=== PATIENT | male | born 1955 | race African-American/Black ===

== ENCOUNTER 2016-10-13 11:02 | Emergency (ER) | payer OTHER ==
--- NOTE | 2016-10-13 11:33 | ER Document Report ---
ED Medical Screen (RME) - General Stated Complaint: KNEE PAIN Mode of Arrival: Ambulatory Information source: Patient Notes: 61 y/o M presents to ED c/o right knee pain over the last week. Reports associated swelling. Denies obvious injury. Reports hx of gout and states feels like gout flare up. I have greeted and performed a rapid initial assessment of this patient. A comprehensive ED assessment and evaluation of the patient, analysis of test results and completion of the medical decision making process will be conducted by additional ED providers. - Related Data Allergies/Adverse Reactions: No Known Allergies Allergy (Verified 10/13/16 11:31) Past Medical History - Past Medical History Cardiac Medical History: Reports: Hx Hypertension GI Medical History: Reports: Hx Gastroesophageal Reflux Disease Musculoskeltal Medical History: Reports Hx Arthritis - Immunizations Hx Diphtheria, Pertussis, Tetanus Vaccination: Yes Physical Exam - Vital signs Vitals: Temp Pulse Resp BP Pulse Ox 98.2 F 95 16 150/83 H 96 10/13/16 11:23 10/13/16 11:23 10/13/16 11:10/13/16 11:23 10/13/16 11:23 - General General appearance: Appears well, Alert In distress: None - Respiratory Respiratory status: No respiratory distress Course - Vital Signs Vital signs: Temp Pulse Resp BP Pulse Ox 98.2 F 95 16 150/83 H 96 10/13/16 11:23 10/13/16 11:23 10/13/16 11:23 10/13/16 11:23 10/13/16 11:23
[2016-10-13] MEDS ORDERED: HYDROCODONE/ACETAMINOPHEN 5-325 MG TABLET PO ONE (12:25)
--- NOTE | 2016-10-13 12:29 | ER Document Report ---
HPI - HPI Patient complains to provider of: right knee pain Onset: Last week Onset/Duration: Persistent Quality of pain: Achy Pain Level: 4 Context: Patient complains of right knee pain for the past week. Patient states he was on a bus ride and it was very cramped causing him to sit in a flexed position for a long period of time. Patient states whenever he stood up he started to have knee joint pain. Patient thought that he was having a gout flare up and took his usual gout medications, but continues to have right knee pain without improvement. Patient denies any new injury. Patient denies any chest pain or shortness of breath. Associated Symptoms: Other - Right knee joint pain. denies: Nonproductive cough , Fever Exacerbated by: Standing, Movement, Walking Relieved by: Denies Similar symptoms previously: Yes Recently seen / treated by doctor: No - ROS ROS below otherwise negative: Yes Systems Reviewed and Negative: Yes All other systems reviewed and negative - CONSTITUTIONAL Constitutional: DENIES: Fever, Chills - CARDIOVASCULAR Cardiovascular: DENIES: Chest pain - RESPIRATORY Respiratory: DENIES: Trouble Breathing, Coughing - GASTROINTESTINAL Gastrointestinal: DENIES: Nausea, Patient vomiting - MUSCULOSKELETAL Musculoskeletal: REPORTS: Extremity pain - Right knee - DERM Skin Color: Normal Skin Problems: None Past Medical History - General Information source: Patient - Social History Smoking Status: Never Smoker Chew tobacco use (# tins/day): No Frequency of alcohol use: None Drug Abuse: None Occupation: none Lives with: Spouse/Significant other Family History: Reviewed & Not Pertinent Patient has suicidal ideation: No Patient has homicidal ideation: No - Past Medical History Cardiac Medical History: Reports: Hx Hypertension Renal/ Medical History: Denies: Hx Peritoneal Dialysis GI Medical History: Reports: Hx Gastroesophageal Reflux Disease Musculoskeltal Medical History: Reports Hx Arthritis, Reports Other - Artemio Surgical Hx: Negative - Immunizations Hx Diphtheria, Pertussis, Tetanus Vaccination: Yes Vertical Provider Document - CONSTITUTIONAL Agree With Documented VS: Yes Exam Limitations: No Limitations General Appearance: WD/WN, No Apparent Distress - INFECTION CONTROL TRAVEL OUTSIDE OF THE [place] IN LAST 30 DAYS: No - HEENT HEENT: Atraumatic, Normocephalic - NECK Neck: Normal Inspection, Supple - RESPIRATORY Respiratory: Breath Sounds Normal, No Respiratory Distress O2 Sat by Pulse Oximetry: 96 - CARDIOVASCULAR Cardiovascular: Regular Rate, Regular Rhythm, No Murmur Pulses: Normal: Posterior tibial - MUSCULOSKELETAL/EXTREMETIES Musculoskeletal/Extremeties: MAEW, FROM, Tender - Patient with mild tenderness to the lateral compartment of right knee. No effusion, normal skin color and temperature overlying joint. - NEURO Level of Consciousness: Awake, Alert, Appropriate Motor/Sensory: No Motor Deficit - DERM Integumentary: Warm, Dry, No Rash Course - Re-evaluation Re-evalutation: 10/13/16 12:26 Patient denies injury and does not feel it is necessary to have x-ray performed. - Vital Signs Vital signs: Temp Pulse Resp BP Pulse Ox 98.2 F 95 16 150/83 H 96 10/13/16 11:23 10/13/16 11:23 10/13/16 11:23 10/13/16 11:23 10/13/16 11:23 Discharge - Discharge Clinical Impression: Pain, joint, knee, right, Hx of gout, Hx of chronic arthritis Condition: Stable Disposition: HOME, SELF-CARE Instructions: Oral Narcotic Medication ([facility]), Arthritis ([facility]), Gout Diet ([facility]) , Gout ([facility]) Additional Instructions: Return immediately for any new or worsening symptoms Followup with your primary care provider, call tomorrow to make a followup appointment Follow up with orthopedic Dr. for any continued knee pain or problems Use a walker to help with ambulation Take either your ibuprofen or Indocin, do not take both medications together Prescriptions: Hydrocodone/Acetaminophen [[place] 5-325 Tablet] 1 each PO Q8 PRN #15 tablet PRN Reason: Walker [Folding Walker] 1 each MC ASDIR PRN #1 each PRN Reason: Referrals: JEWEL MARTIN MD [Primary Care Provider] - Follow up tomorrow [facility] [Provider Group] - Follow up in 3-5 days
[2016-10-13 12:49] VITALS: BP 124/74
== END 2016-10-13 12:50 | disposition home or self-care (01) ==
LOC: ER 11:02
DX: M25.561 Pain in right knee (principal)
CPT/HCPCS: 99283

== ENCOUNTER 2017-06-30 23:31 | Inpatient (IN) | payer OTHER ==
[2017-06-30] MEDS ORDERED: MORPHINE SULFATE 10 MG/ML INJ IV ONE (23:39)
[2017-06-30] MEDS ORDERED: ONDANSETRON HCL INJ/PF 4 MG/2 ML SDV IV ONE (23:39)
[2017-06-30] MEDS ORDERED: DIPHENHYDRAMINE HCL 50 MG/ML VIAL ONE (23:44)
--- NOTE | 2017-06-30 23:46 | ER Document Report ---
ED Extremity Problem, Lower - General Chief Complaint: Leg Pain Stated Complaint: LEG PAIN Time Seen by Provider: 06/30/17 23:33 Information source: Patient TRAVEL OUTSIDE OF THE [place] IN LAST 30 DAYS: No - HPI Patient complains to provider of: Pain Notes: 61-year-old male with history of hypertension, gout, and arthritis presents with left lower extremity pain predominantly but now fairly diffuse extremity pain for the last couple of days. The left lower extremity pain is the worst extends from the left knee to the left lateral calf region. He is now getting pain in his right knee as well he is having pain from his elbows to his arms. Denies any injury. Denies any distal numbness or tingling. Pain is made worse with movement. No fever. Denies chest pain or shortness of breath. He has not noted any excessive swelling different from normal. Denies other systemic symptoms. Patient tearful and states from pain though family report sister 3 weeks ago. - Related Data Allergies/Adverse Reactions: No Known Allergies Allergy (Verified 10/13/16 11:31) Past Medical History - Social History Smoking Status: Former Smoker Frequency of alcohol use: Heavy prior, now 2 drinks a day. Family History: Reviewed & Not Pertinent Patient has suicidal ideation: No - Past Medical History Cardiac Medical History: Reports: Hx Hypertension Renal/ Medical History: Denies: Hx Peritoneal Dialysis GI Medical History: Reports: Hx Gastroesophageal Reflux Disease Musculoskeltal Medical History: Reports Hx Arthritis - Immunizations Hx Diphtheria, Pertussis, Tetanus Vaccination: Yes Review of Systems - Review of Systems -: Yes All other systems reviewed and negative Physical Exam - Vital signs Vitals: Temp Pulse Resp BP Pulse Ox 98.3 F 121 H 17 146/93 H 99 06/30/17 23:39 06/30/17 23:39 06/30/17 23:39 06/30/17 23:39 06/30/17 23:39 - Notes Notes: Physical Exam: GENERAL: VS as per nursing doc. Well-appearing, well-nourished and in no acute distress but has notable pain with movement going from the stretcher to the bed. HEAD: Atraumatic, normocephalic. EYES: Sclera anicteric, no conjunctival injection or discharge. ENT: Moist mucous membranes. NECK:Supple without lymphadenopathy. No JVD. No Carotid Bruits. LUNGS: Breath sounds clear to auscultation bilaterally and equal. No wheezes rales or rhonchi. HEART: Normal S1S2. Tachycardic with regular rhythm without murmurs. Equal peripheral pulses 2+. ABDOMEN: Soft, non-tender. EXTREMITIES: Diffusely tender left knee with arthritic changes but no significant effusion. Some tenderness in the popliteal region but no specific calf tenderness and is more over the lateral calf. Negative Homans. Slightly more edema to the left ankle compared to the right. NEUROLOGICAL: Cranial nerves grossly intact. Normal speech. Normal sensory and motor exams. No gross cerebellar abnormalities. PSYCH: Normal mood, normal affect. SKIN: Warm, dry, no cyanosis, no splinter hemorrhages. Cap refill < 2 sec. No extremity cellulitis. Course - Re-evaluation Re-evalutation: 07/01/17 01:[address] Wiley who will evaluate the patient. Unfortunately at this institution I do not do duplex ultrasounds after 10 PM and will be able at 8 to be able to perform. Patient has severe hypomagnesemia and hypokalemia with an abnormal EKG. We have begun supplementation in the emergency department. Patient as well cannot effectively ambulate without significant fall risk. - Vital Signs Vital signs: Temp Pulse Resp BP Pulse Ox 98.3 F 121 H 18 144/88 H 97 06/30/17 23:39 06/30/17 23:39 07/01/17 01:01 07/01/17 01:01 07/01/17 01:01 - Laboratory Result Diagrams: 07/01/17 00:05 07/01/17 00:05 Laboratory results interpreted by me: 07/01/17 07/01/17 07/01/17 00:05 00:05 00:05 RBC 3.03 L Hgb 10.6 L Hct 30.7 L MCV 101 H MCH 35.0 H D-Dimer 1.61 H Potassium 3.0 L* Glucose 125 H Calcium 7.9 L Magnesium 07/01/17 00:05 RBC Hgb Hct MCV MCH D-Dimer Potassium Glucose Calcium Magnesium 1.0 L* - Diagnostic Test Radiology reviewed: Image reviewed, Reports reviewed - No acute abnormality - EKG Interpretation by Me Rate: Tachycardia - Sinus tachycardia, rate of 115, nonspecific ST abnormalities with some slurring of the ST segments. Poor R-wave regression with left axis deviation. LVH by criteria in aVL. Discharge - Discharge Clinical Impression: Leg pain, Hypomagnesemia, Hypokalemia, Tachycardia Condition: Fair Disposition: ADMITTED OBSERVATION Admitting Provider: [facility] Admitted: Telemetry
[2017-07-01 00:20] LABS: ABSOLUTE LYMPHOCYTES (AUTO) 1.2 10^3/uL (0.5-4.7); ABSOLUTE MONOCYTES (AUTO) 0.9 10^3/uL (0.1-1.4); ABSOLUTE NEUT (AUTO) 6.9 10^3/uL (1.7-8.2); BASOPHILS % (AUTO) 0.5 % (0-2); EOSINOPHILS % (AUTO) 0.3 % (0-6); HEMATOCRIT 30.7 % (37.9-51.0); HEMOGLOBIN 10.6 g/dL (13.5-17.0); HGB HCT DIFFERENCE 1.1; LYMPHOCYTES % (AUTO) 13.3 % (13-45); MEAN CORPUSCULAR HGB CONC 34.6 g/dL (32.0-36.0); MEAN CORPUSCULAR VOLUME 101 fl (80-97); MONOCYTES % (AUTO) 10.3 % (3-13); RED BLOOD COUNT 3.03 10^6/uL (4.35-5.55); RED CELL DISTRIBUTION WIDTH 13.6 % (11.5-14.0); SEGMENTED NEUTROPHILS % (AUTO) 75.6 % (42-78); WHITE BLOOD COUNT 9.1 10^3/uL (4.0-10.5)
[2017-07-01 00:32] LABS: ANION GAP 13 (5-19); BLOOD UREA NITROGEN 12 mg/dL (7-20); CALCIUM 7.9 mg/dL (8.4-10.2); CARBON DIOXIDE 24 mmol/L (22-30); CHLORIDE 104 mmol/L (98-107); CREATINE KINASE 135 U/L (55-170); CREATININE RESULT 1.23 mg/dL (0.52-1.25); GLUCOSE 125 mg/dL (75-110); SODIUM 140.8 mmol/L (137-145); URIC ACID 7.5 mg/dL (3.5-8.5)
[2017-07-01] MEDS ORDERED: POTASSIUM CHLORIDE 10 MEQ TABLET.SA PO ONE ×2 (00:44→01:39)
--- NOTE | 2017-07-01 01:11 | RADIOLOGY REPORT (SQ) ---
EXAM DESCRIPTION: TIBIA FIBULA LEFT CLINICAL HISTORY: Pain COMPARISON: None. FINDINGS: 2 views of the left tibia and fibula. Atherosclerotic vascular calcification. No acute fracture or dislocation. Normal osseous mineralization. IMPRESSION: 1. No acute fracture or dislocation.
[2017-07-01] MEDS ORDERED: MAGNESIUM SULFATE/D5W 1 GM/100 ML RTUPB IV SCH (01:30)
[2017-07-01] MEDS ORDERED: ONDANSETRON HCL INJ/PF 4 MG/2 ML SDV IV PRN (01:39)
[2017-07-01] MEDS ORDERED: ACETAMINOPHEN 325 MG TABLET PO PRN (01:39)
[2017-07-01] MEDS ORDERED: POTASSIUM CHLORIDE 20 MEQ/15 ML UDCUP PO ONE (02:00)
[2017-07-01] MEDS ORDERED: NORMAL SALINE 1000 ML 500 ML IV ONE (02:05)
[2017-07-01] MEDS ORDERED: DIAZEPAM 5 MG TABLET PO ONE (02:31)
[2017-07-01] MEDS ORDERED: NORMAL SALINE 1000 ML 1,000 ML IV ONE (02:31)
[2017-07-01] MEDS: MAGNESIUM SULFATE/D5W 1 GM/100 ML RTUPB IV SCH ×3 (02:38→04:43)
[2017-07-01] MEDS ORDERED: FOLIC ACID 1 MG TABLET PO ONE (02:53)
[2017-07-01] MEDS ORDERED: THIAMINE HCL 100 MG TABLET PO ONE (02:53)
--- NOTE | 2017-07-01 02:53 | PDOC H&P ---
History of Present Illness Admission Date/PCP: 07/01/17 02:10 History of Present Illness: HOLA PRICE is a 61 year old male with a PMH of HTN, hypothyroidism, gout, alcohol abuse, GERD who presents with a sudden onset of Left lower extremity pain. Patient reports he did a lot of walking today and he began having pain while he was resting. He does report an episode of diarrhea last week which is quite profound. He reports his last drink was this afternoon. He denies any shortness of breath, swelling. He is referred to hospital service for electrolyte disturbance and lower extremity pain. Past Medical History Cardiac Medical History: Reports: Hypertension Endocrine Medical History: Reports: Hypothyroidism Renal/ Medical History: Reports: Other - Gout GI Medical History: Reports: Gastroesophageal Reflux Disease Musculoskeltal Medical History: Reports: Arthritis Psychiatric Medical History: Reports: Alcohol Dependency Past Surgical History Past Surgical History: Reports: None Social History Smoking Status: Former Smoker Frequency of Alcohol Use: Heavy Amount of Alcoholic Beverages Per Day: 2-3 double shots of hard liquor daily or more Hx Recreational Drug Use: No Hx Prescription Drug Abuse: No - Advance Directive Resuscitation Status: Full Code Surrogate healthcare decision maker:: Obdulia Montaño, Family History Family History: CAD, DM Parental Family History Reviewed: Yes Children Family History Reviewed: Yes Sibling(s) Family History Reviewed.: Yes Medication/Allergy Home Medications: Amlodipine Besylate 10 mg PO DAILY 08/31/13 Clobetasol Propionate [Temovate 0.05% Topical Soln 25 ml] 1 applic TP ASDIR PRN 08/31/13 Esomeprazole Magnesium [Nexium] 40 mg PO DAILY 08/31/13 Indomethacin 50 mg PO TID 08/31/13 Valsartan [Diovan] 320 mg PO DAILY 08/31/13 Ondansetron HCl [Zofran 8 Mg Tablet] 8 mg PO Q4 PRN #10 tablet 11/14/13 Hydrocodone/Acetaminophen [[place] 5-325 Tablet] 1 each PO Q8 PRN #15 tablet 10/13 Walker [Folding Walker] 1 each MC ASDIR PRN #1 each 10/13/16 Allergies/Adverse Reactions: No Known Allergies Allergy (Verified 10/13/16 11:31) Review of Systems Constitutional: ABSENT: chills, fever(s), headache(s), weight gain, weight loss Eyes: ABSENT: visual disturbances Ears: ABSENT: hearing changes Cardiovascular: ABSENT: chest pain, dyspnea on exertion, edema, orthropnea, palpitations Respiratory: ABSENT: cough, hemoptysis Gastrointestinal: ABSENT: abdominal pain, constipation, diarrhea, hematemesis, hematochezia, nausea, vomiting Genitourinary: ABSENT: dysuria, hematuria Musculoskeletal: ABSENT: joint swelling Integumentary: ABSENT: rash, wounds Neurological: ABSENT: abnormal gait, abnormal speech, confusion, dizziness, focal weakness, syncope Psychiatric: PRESENT: depression. ABSENT: anxiety, homidical ideation, suicidal ideation Endocrine: ABSENT: cold intolerance, heat intolerance, polydipsia, polyuria Hematologic/Lymphatic: ABSENT: easy bleeding, easy bruising Physical Exam Vital Signs: Temp Pulse Resp BP Pulse Ox 98.3 F 121 H 18 144/88 H 97 06/30/17 23:39 06/30/17 23:39 07/01/17 01:01 07/01/17 01:01 07/01/17 01:01 General appearance: PRESENT: no acute distress, morbidly obese, well-developed, well-nourished Head exam: PRESENT: atraumatic, normocephalic Eye exam: PRESENT: conjunctiva pink, EOMI, PERRLA. ABSENT: conjunctival injection, scleral icterus Ear exam: PRESENT: normal external ear exam Mouth exam: PRESENT: dry mucosa, tongue midline Neck exam: PRESENT: thyromegaly - Mild. ABSENT: JVD, lymphadenopathy, tracheal deviation Respiratory exam: PRESENT: clear to auscultation asim, symmetrical, unlabored. ABSENT: accessory muscle use, rales, rhonchi, wheezes Cardiovascular exam: PRESENT: RRR, +S1, +S2, tachycardia. ABSENT: diastolic murmur, rubs, systolic murmur Pulses: PRESENT: normal dorsalis pedis pul Vascular exam: PRESENT: normal capillary refill GI/Abdominal exam: PRESENT: ascites, distended, normal bowel sounds, soft. ABSENT: firm, guarding, hernia, mass, Nicole's sign, organolmegaly, rebound, rigid, tenderness Rectal exam: PRESENT: deferred Extremities exam: PRESENT: calf tenderness - Left lower extremity, full ROM. ABSENT: clubbing, pedal edema Neurological exam: PRESENT: alert, awake, oriented to person, oriented to place , oriented to time, oriented to situation, CN II-XII grossly intact. ABSENT: motor sensory deficit Psychiatric exam: PRESENT: appropriate affect, depressed. ABSENT: homicidal ideation, suicidal ideation Skin exam: PRESENT: dry, intact, warm. ABSENT: cyanosis, rash Results Laboratory Results: 07/01/17 07/01/17 07/01/17 00:05 00:05 00:05 Hgb 10.6 L D-Dimer 1.61 H Potassium 3.0 L* Glucose 125 H Uric Acid 7.5 Calcium 7.9 L Magnesium Creatine Kinase 135 07/01/17 00:05 Hgb D-Dimer Potassium Glucose Uric Acid Calcium Magnesium 1.0 L* Creatine Kinase Impressions: Tibia/Fibula X-Ray 07/01/17 00:33 IMPRESSION: 1. No acute fracture or dislocation. Assessment & Plan - Diagnosis (1) Leg pain Qualifiers: Laterality: left Qualified Code(s): M79.605 - Pain in left leg Is this a current diagnosis for this admission?: Yes Plan: This is likely secondary to patient's likely derangement, however in light of elevated d-dimer we would be remiss for not obtaining an ultrasound. However, we are unable to obtain an ultrasound in the evening at this facility. Patient will have to be observed overnight in order to obtain one prior to discharge. Ultram as needed pain (2) Alcohol abuse Is this a current diagnosis for this admission?: Yes Plan: Place patient on thiamine, folic acid, and oral magnesium. Give one-time dose of Valium and will consider Ativan if symptoms worsen. He reports his last drink was earlier this afternoon. (3) Hypothyroidism Qualifiers: Hypothyroidism type: unspecified Qualified Code(s): E03.9 - Hypothyroidism , unspecified Is this a current diagnosis for this admission?: Yes Plan: Check a TSH and free T4 (4) GERD (gastroesophageal reflux disease) Qualifiers: Esophagitis presence: esophagitis presence not specified Qualified Code(s) : K21.9 - Gastro-esophageal reflux disease without esophagitis Is this a current diagnosis for this admission?: Yes Plan: Continue PPI (5) Hypertension Qualifiers: Hypertension type: unspecified Qualified Code(s): I10 - Essential (primary ) hypertension Is this a current diagnosis for this admission?: Yes Plan: Continue Norvasc and consider Cozaar (6) Hypokalemia Is this a current diagnosis for this admission?: Yes Plan: Replete and recheck (7) Hypomagnesemia Is this a current diagnosis for this admission?: Yes Plan: Replete and recheck - Time Time Spent: 30 to 50 Minutes Medications reviewed and adjusted accordingly: No - Undergoing reconciliation Anticipated discharge: Home Within: within 24 hours - Inpatient Certification Based on my medical assessment, after consideration of the patient's comorbidities, presenting symptoms, or acuity I expect that the services needed warrant INPATIENT care.: No I certify that my determination is in accordance with my understanding of Medicare's requirements for reasonable and necessary INPATIENT services [42 CFR 412.3e].: No 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
[2017-07-01] MEDS ORDERED: LANSOPRAZOLE 30 MG TAB.RAP.DR PO ONE (03:00)
[2017-07-01] MEDS: POTASSI CL 20 MEQ/50 ML RIDER 20 MEQ/50 ML RTUPB IV SCH ×3 (04:07→08:53)
[2017-07-01 04:10] LABS: THYROID STIMULATING HORMONE 7.27 uIU/mL (0.47-4.68)
[2017-07-01] MEDS: TRAMADOL HCL 50 MG TABLET PO PRN ×2 (04:41→14:13)
[2017-07-01] MEDS: HEPARIN SOD (PORCINE) 5,000 UNIT/ML 1 ML SYRINGE SUBCUT SCH ×3 (05:16→21:56)
[2017-07-01] MEDS: DIAZEPAM 5 MG TABLET PO SCH ×3 (05:41→21:55)
--- NOTE | 2017-07-01 09:28 | EKG REPORT ---
SEVERITY:- ABNORMAL ECG - SINUS TACHYCARDIA LEFT AXIS DEVIATION LEFT VENTRICULAR HYPERTROPHY : Confirmed by: Christel Leslie 01-Jul-2017 09:27:59
[2017-07-01 10:38] LABS: ANION GAP 14 (5-19); BLOOD UREA NITROGEN 12 mg/dL (7-20); CALCIUM 7.8 mg/dL (8.4-10.2); CARBON DIOXIDE 22 mmol/L (22-30); CHLORIDE 105 mmol/L (98-107); CREATININE RESULT 1.17 mg/dL (0.52-1.25); GLUCOSE 144 mg/dL (75-110); MAGNESIUM 1.9 mg/dL (1.6-2.3); POTASSIUM 3.7 mmol/L (3.6-5.0); SODIUM 141.4 mmol/L (137-145)
[2017-07-01] MEDS: THIAMINE HCL 100 MG TABLET PO SCH (10:47)
[2017-07-01] MEDS: AMLODIPINE BESYLATE 10 MG TABLET PO SCH (10:48)
[2017-07-01] MEDS: FOLIC ACID 1 MG TABLET PO SCH (10:48)
[2017-07-01] MEDS: PREDNISONE 20 MG TABLET PO SCH ×2 (10:48→17:00)
[2017-07-01] MEDS ORDERED: [UNRECOGNIZED DRUG - REMARK] PO ONE (11:00)
[2017-07-01] MEDS ORDERED: COLCHICINE 0.6 MG TABLET PO ONE (11:00)
[2017-07-01 12:08] LABS: HEMATOCRIT 31.4 % (37.9-51.0); HEMOGLOBIN 10.8 g/dL (13.5-17.0); MEAN CORPUSCULAR HEMOGLOBIN 35.1 pg (27.0-33.4); MEAN CORPUSCULAR HGB CONC 34.3 g/dL (32.0-36.0); MEAN CORPUSCULAR VOLUME 102 fl (80-97); RED BLOOD COUNT 3.07 10^6/uL (4.35-5.55); RED CELL DISTRIBUTION WIDTH 13.7 % (11.5-14.0); WHITE BLOOD COUNT 9.3 10^3/uL (4.0-10.5)
--- NOTE | 2017-07-01 12:13 | PROGRESS NOTE E ---
Progress Note NAME: HOLA PRICE : 1955 AGE: 61Y DATE: 07/01/2017 ROOM: 422 CHIEF COMPLAINT: Something is not right. SUBJECTIVE: The patient is lying in bed. The patient is quite shaky. The patient states that his last alcoholic beverage was yesterday; however, the patient does not feel his symptoms are related to that. The patient does complain of persistent left lower extremity pain and discomfort. The patient himself denies any nausea or vomiting. There is no diarrhea. The patient denies any shortness of breath. No dizziness or chest pain. The patient admits to left upper extremity pain that has started acutely. The patient also states that "there is something wrong with me." The patient did not voice any other concerns at this time. His is present at the bedside and active in the patient's care. REVIEW OF SYSTEMS: Rest of the review of systems negative. MEDICATIONS: Have been reviewed. OBJECTIVE: GENERAL: The patient is a 61-year-old -[place] male who is awake and alert. He is oriented to person, place, time, and situation. He is verbal, conversational, appears quite anxious but does not appear to be in respiratory distress. VITAL SIGNS: Temperature 98.4, pulse 117, respirations 20, blood pressure 147/81, oxygen saturation is 96% on 2 L nasal cannula. SKIN: Quite warm to the touch. Mildly diaphoretic. HEENT: Pupils equal, round, reactive to light and accommodation. Conjunctivae are pink. There is no evidence of JVP. CARDIOVASCULAR: Heart is tachycardiac but regular. There is no rub. CHEST: Clear, symmetrical, unlabored. ABDOMEN: Large but not distended. He does not have any areas of focal tenderness. EXTREMITIES: No clubbing or cyanosis. The patient does have left lower extremity pain with touch. PSYCHIATRIC: The patient is quite anxious and shaky. DIAGNOSTICS: Lab values are as follow: Hematology obtained on 07/01/2017: WBCs are 9.1, hemoglobin is 10.6, hematocrit is 30.7, platelet count is 154,000. Chemistry obtained on 07/01/2017: Sodium is 140, potassium 3.0, chloride is 104, carbon dioxide 24, BUN 12, creatinine is 1.23, glucose 125, calcium is 7.5, uric acid is 7.5, magnesium is 1. IMPRESSION AND PLAN: 1. HYPOKALEMIA. This is significant. The patient is receiving potassium repletion at this time. Will stat repeat chemistries and follow. 2. HYPOMAGNESEMIA ALSO PROFOUND. The patient has received repletion as well. Will repeat at this time. 3. ALCOHOL DEPENDENCY. Will continue B vitamin supplementation. Will also start the patient on beer t.i.d. Do not want alcohol withdrawal to skew this clinical picture at this time. 4. LEFT LOWER EXTREMITY PAIN. The patient gives a history of gout. Venous Doppler is pending. Although the patient's uric acid is unremarkable, this could be delayed. Regardless, will load the patient with colchicine and give a dose of steroids and follow. 5. SIRS RESPONSE. The patient does have a low grade fever. His heart rate at one point was up to 140. He is now sitting in the 120 range and is hypertensive. Could be an element of alcohol withdrawal here, however, given the patient's anxiety and clinical picture am concerned for another etiology. Will obtain blood and urine studies and will add LFTs and follow. 6. LEFT EXTREMITY PAIN. The patient was unable to pinpoint any issue. He denies any actual chest pain though. Will add troponin and repeat EKG and follow. DISPOSITION: The patient is a FULL CODE. Pending patient's symptomatology and diagnostic findings, will reevaluate as needed. Time spent on this followup including assessment, plan, physical examination, patient education, family meeting, and review of previous and current medical records is 40 minutes. ADDENDUM: Followed up the patient's repeat labs. His hematology is still pending as well as LFTs; however his BMP has returned and potassium has been corrected as well as magnesium. The patient's troponin was also unremarkable. However, the patient still remains quite anxious and is tachycardiac at 120 as well as hypertensive and has a low grade temp of 100. Will add antipyretic therapy as well as chest x-ray pending the results of the patient's Doppler. May also do CTA or forego the above for CTA and transfer to [facility]. Time spent on this followup including patient reassessment and review of medical records is 30 minutes. Total time spent on this patient for an extended visit including assessment, plan, physical examination, patient education, family meeting, and review of records is 70 minutes. DICTATING PHYSICIAN: JOSSUE SANCHEZ NP [id number] PHY#: [id number] ID: [id number] JOB#: [id number] ACCT: [id number] cc: >
[2017-07-01 12:30] LABS: ALANINE AMINOTRANSFERASE 28 U/L (21-72); ALBUMIN 3.2 g/dL (3.5-5.0); ALKALINE PHOSPHATASE 115 U/L (38-126); ASPARTATE AMINO TRANSFERASE 44 U/L (17-59); BILIRUBIN,DIRECT 1.5 mg/dL (0.0-0.4); BILIRUBIN,TOTAL 2.4 mg/dL (0.2-1.3); TOTAL PROTEIN 7.3 g/dL (6.3-8.2)
--- NOTE | 2017-07-01 13:19 | RADIOLOGY REPORT (SQ) ---
EXAM DESCRIPTION: CTA CHEST COMPLETED DATE/TIME: 07/01/2017 1:03 pm REASON FOR STUDY: +D-dimer, dyspnea, Persistant tach COMPARISON: None. TECHNIQUE: CT scan of the chest performed using helical scanning technique with dynamic intravenous contrast injection. Images reviewed with lung, soft tissue and bone windows. Reconstructed coronal and sagittal MPR images reviewed. Additional 3 dimensional post-processing performed to develop Maximal Intensity Projection images (CA P). All images stored on PACS. All CT scanners at this facility use dose modulation, iterative reconstruction, and/or weight based d osing when appropriate to reduce radiation dose to as low as reasonably achievable (ALARA). [facility]: Dose Right [facility]: CareDose [facility]: Dose Right [facility]: Teradose 4D [facility]: MicroCoal CONTRAST TYPE AND DOSE: contrast/concentration: Isovue 370.00 mg/ml; Total Contrast Delivered: 85.0 ml; Total Saline Delivered: 77.9 ml Contrast bolus optimized for the pulmonary arteries. Not diagnostic for the aorta. RENAL FUNCTION: BUN 12 creatinine 1.2 RADIATION DOSE: Up-to-date CT equipment and radiation dose reduction techniques were employed. CTDIv ol: 23.2 - 28.6 mGy. DLP: 1000 mGy-cm. . LIMITATIONS: Motion. FINDINGS: LUNGS AND PLEURA: Diffuse interlobular septal thickening. Diffuse ground-glass attenuatio n. No effusions. AORTA AND GREAT VESSELS: No aneurysm. Contrast bolus not optimized for the aorta. HEART: No pericardial effusion. Cardiomegaly. PULMONARY ARTERIES: No emboli visualized in the main pulmonary arteries or the segmental branches. HILAR AND MEDIASTINAL STRUCTURES: No identified masses or abnormal nodes. HARDWARE: None in the chest. UPPER ABDOMEN: Cholelithiasis. Polycystic kidney disease. Hiatal hernia. Subcentimeter low-density in the dome of the liver. THYROID AND OTHER SOFT TISSUES: No masses. No adenopathy. BONES: No acute findings. 3D MIPS: Confirm above findings. OTHER: No other significant finding. IMPRESSION: 1. No PE. 2. Cardiomegaly. Diffuse ground-glass attenuation likely representing a component of pulmonary edema . No effusions. COMMENT: Quality ID # [id number]: Final reports with documentation of one or more dose reduction techniques (e.g., Automated exposure control, adjustment of the mA and/or kV according to patient size, use of iterative reconstruction technique) TECHNICAL DOCUMENTATION: JOB ID: [id number] [employer]- All Rights Reserved
[2017-07-01 14:00] LABS: APPEARANCE,URINE CLEAR; BILIRUBIN,URINE NEGATIVE (NEGATIVE); GLUCOSE, URINE NEGATIVE (NEGATIVE); KETONES,URINE NEGATIVE (NEGATIVE); LEUKOCYTE ESTERASE,URINE NEGATIVE (NEGATIVE); NITRITE,URINE NEGATIVE (NEGATIVE); PROTEIN,URINE NEGATIVE (NEGATIVE); URINE SPECIFIC GRAVITY 1.041
--- NOTE | 2017-07-01 16:48 | XCELERA REPORT ---
[address] [address] Lower Extremity Venous Evaluation Name: HOLA PRICE Age: 61 yrs Gender: Male : 1955 Patient Status: Inpatient Patient Location: [address] [place], [place] [id number] Study Date: 07/01/2017 11:12 AM Procedure: Color flow and duplex imaging of the veins of the left lower extremity as well as the right Common Femoral vein. Reason For Study: LLE Pain and swelling Ordering Physician: RENA MALONEY Performed By: Nusrat Elmore Right Sided Venous Evaluation The right common femoral vein is fully compressible. Spontaneous and phasic flow is present in the right common femoral vein. Left Sided Venous Evaluation Normal vessel filling wall to wall, compression and augmentation as well as Colour flow down to the infrageniculate veins. Interpretation Summary No duplex evidence of DVT or obstruction in the left lower extremity nor in the right Common Femoral vein. : RENA MALONEY [place]
[2017-07-01] MEDS: [UNRECOGNIZED DRUG - REMARK] PO SCH ×2 (16:53→22:00)
[2017-07-01] MEDS: FUROSEMIDE INJ/PF 40 MG/4 ML SDV IV SCH (17:00)
[2017-07-02 05:09] LABS: ANION GAP 12 (5-19); BLOOD UREA NITROGEN 14 mg/dL (7-20); CALCIUM 7.6 mg/dL (8.4-10.2); CARBON DIOXIDE 21 mmol/L (22-30); CHLORIDE 103 mmol/L (98-107); GLUCOSE 117 mg/dL (75-110); MAGNESIUM 1.6 mg/dL (1.6-2.3); POTASSIUM 3.5 mmol/L (3.6-5.0); SODIUM 136.1 mmol/L (137-145)
[2017-07-02] MEDS: DIAZEPAM 5 MG TABLET PO SCH ×3 (06:16→23:09)
[2017-07-02] MEDS: HEPARIN SOD (PORCINE) 5,000 UNIT/ML 1 ML SYRINGE SUBCUT SCH ×3 (06:16→23:09)
[2017-07-02] MEDS: LANSOPRAZOLE 30 MG TAB.RAP.DR PO SCH (06:16)
[2017-07-02] MEDS: THIAMINE HCL 100 MG TABLET PO SCH (10:05)
[2017-07-02] MEDS: PREDNISONE 20 MG TABLET PO SCH ×2 (10:05→17:45)
[2017-07-02] MEDS: FOLIC ACID 1 MG TABLET PO SCH (10:05)
[2017-07-02] MEDS: FUROSEMIDE INJ/PF 40 MG/4 ML SDV IV SCH ×2 (10:07→17:45)
[2017-07-02] MEDS: AMLODIPINE BESYLATE 10 MG TABLET PO SCH (10:07)
[2017-07-02] MEDS: [UNRECOGNIZED DRUG - REMARK] PO SCH ×3 (10:14→17:39)
--- NOTE | 2017-07-02 14:08 | PROGRESS NOTE E ---
Progress Note NAME: HOLA PRICE : 1955 AGE: 61Y DATE: 07/02/2017 ROOM: 326 SUBJECTIVE: The patient is currently lying in bed. He states he feels a little better than he did yesterday. He currently denies any shaking sensation. The patient also states that the pain in his leg is improved. The patient does admit to some shortness of breath, but overall feels that it is better in comparison to yesterday. The patient does not voice any other concerns at this time. REVIEW OF SYSTEMS: The rest of the review of systems is negative. MEDICATIONS: Have been reviewed. OBJECTIVE: The patient is a 61-year-old male, who is awake, alert and oriented to person, place, time and situation. He is verbal and conversational. Does not appear to be in acute distress. VITAL SIGNS: Temperature is *------*.4, pulse 98, respirations 23, blood pressure is 118/61. Oxygen saturation is 96% on room air. SKIN: Warm and dry. No rash. He is not diaphoretic. HEENT: Pupils equal, round, reactive to light and accommodation. Conjunctivae are pink. There is no JVD. CARDIOVASCULAR: Heart is regular. There is no rub. CHEST: Symmetrical, with bilateral basal crackles. ABDOMEN: Quite large. Possible ascites. No area of focal tenderness. EXTREMITIES: No clubbing, cyanosis, edema. PSYCHIATRIC: Appropriate affect. Pleasant mood. DIAGNOSTICS: Lab values are as follows: Hematology on 07/01/2017: WBC is 9.3, hemoglobin is 10.8, hematocrit is 31.4, platelet count is 153,000. Chemistry obtained on ------*: Sodium is 136, potassium 3.5, chloride is 103, carbon dioxide 21, BUN 14, creatinine is 1.2, glucose is 117, calcium is 7.6, magnesium is 6.1. IMPRESSION AND PLAN: 1. PULMONARY EDEMA. Uncertain of the etiology of this. The patient has diuresed relatively well. Will continue diuresis for now. Echocardiogram is pending at this time. This is most likely a case of heart failure versus hepatic failure. Will follow. 2. HYPOKALEMIA. This was quite significant. The patient had to receive IV repletion. Will follow. 3. HYPOMAGNESEMIA. This was also profound. The patient has received repletion and magnesium is now in an acceptable range. 4. ALCOHOL DEPENDENCY, CONTINUOUS. Will continue to supplement B vitamins; however, concern for acute withdrawal. Will continue a beer t.i.d. because we did not want withdrawal to skew the current clinical picture. If indeed the patient appears to have hepatic failure or an alcoholic cardiomyopathy or so forth, will discuss sobriety and wean the patient from alcohol. 5. LEFT LOWER EXTREMITY PAIN. Most likely, this is gout. Doppler was unremarkable. Symptoms improved with colchicine and steroids. Will continue. 6. SIRS RESPONSE. The patient did have a low-grade fever and was tachycardic. [place] this may have been impending withdrawal, but the patient has no significant white count. Will follow. DISPOSITION: The patient is a FULL CODE. Pending the patient's symptomatology and diagnostic findings, will reevaluate in the a.m. TIME SPENT: Time spent on this followup, including assessment, plan, physical examination, patient education and family meeting, is 35 minutes. DICTATING PHYSICIAN: JOSSUE SANCHEZ [id number] PHY#: [id number] ID: [id number] JOB#: [id number] ACCT: [id number] cc: >
--- NOTE | 2017-07-02 19:52 | XCELERA REPORT ---
[address] [address] Transthoracic Echocardiogram Report Name: HOLA PRICE Age: 61 yrs Gender: Male : 1955 Patient Status: Inpatient Patient Location: [address] [place] [address] Study Date: 07/02/2017 11:16 AM Height: 72 in Weight: 273 lb BSA: 2.4 m2 Procedure: A complete two-dimensional transthoracic echocardiogram was performed (2D, M-mode, spectral and color flow Doppler). The study was technically difficult with many images being suboptimal in quality. Reason For Study: Pulmonary edema Ordering Physician: JOSSUE SANCHEZ Performed By: Viviane Dominguez Interpretation Summary The left ventricular ejection fraction is normal. There is normal left ventricular wall thickness. Doppler measurements suggest pseudonormalized left ventricular relaxation, which is associated with grade II/IV or mild to moderate diastolic dysfunction The left ventricle is grossly normal size. Regional wall motion abnormalities cannot be excluded due to limited visualization. The right ventricular systolic function is normal. The right ventricle is mildly dilated. Borderline left atrial enlargement. Right atrium not well visualized secondary to technical limitations There is a trace amount of mitral regurgitation There is no mitral valve stenosis. No aortic regurgitation is present. There is no aortic valve stenosis There is a trace or physiologic amount of tricuspid regurgitation Tricuspid regurgitation jet envelope not well defined to measure RV systolic pressure accurately. The aortic root is not well visualized. The inferior vena cava was not well visualized Minimal pericardial effusion. MMode/2D Measurements & Calculations RVDd: 3.5 cm LVIDd: 5.0 cm FS: 38.0 % Ao root diam: 3.4 cm IVSd: 0.79 cm LVIDs: 3.1 cm EDV(Teich): 119.8 ml LVPWd: 0.80 cm ESV(Teich): 38.4 ml Ao root area: 8.9 cm2 EF(Teich): 67.9 % Doppler Measurements & Calculations MV E max destini: MV dec slope: Ao V2 max: LV V1 max P.9 cm/sec 125.1 cm/sec 3.7 mmHg MV A max destini: 546.1 cm/sec2 Ao max PG: LV V1 max: 82.1 cm/sec MV dec time: 6.3 mmHg 96.7 cm/sec MV E/A: 1.0 0.16 sec PA V2 max: PI end-d destini: 105.8 cm/sec 80.7 cm/sec PA max P.5 mmHg Left Ventricle The left ventricle is grossly normal size. There is normal left ventricular wall thickness. The left ventricular ejection fraction is normal. Doppler measurements suggest pseudonormalized left ventricular relaxation, which is associated with grade II/IV or mild to moderate diastolic dysfunction. Regional wall motion abnormalities cannot be excluded due to limited visualization. Right Ventricle The right ventricle is mildly dilated. There is normal right ventricular wall thickness. The right ventricular systolic function is normal. Atria Right atrium not well visualized secondary to technical limitations. Borderline left atrial enlargement. Interarterial septum not well visualized and not well dopplered. Cannot comment on ASD/PFO presence. Mitral Valve The mitral valve is not well visualized. There is no mitral valve stenosis. There is a trace amount of mitral regurgitation. Aortic Valve The aortic valve is grossly normal. There is no aortic valve stenosis. No aortic regurgitation is present. Tricuspid Valve The tricuspid valve is not well visualized, but is grossly normal. There is no tricuspid stenosis. There is a trace or physiologic amount of tricuspid regurgitation. Tricuspid regurgitation jet envelope not well defined to measure RV systolic pressure accurately. Pulmonic Valve The pulmonic valve is not well visualized. Great Vessels The aortic root is not well visualized. The inferior vena cava was not well visualized. Effusions Minimal pericardial effusion. : JOSSUE SANCHEZ > Christel Leslie
--- NOTE | 2017-07-02 23:13 | RADIOLOGY REPORT (SQ) ---
EXAM DESCRIPTION: U/S ABDOMEN LIMITED W/O DOP COMPLETED DATE/TIME: 07/02/2017 11:00 pm REASON FOR STUDY: Elevated LFTs, Ascites? COMPARISON: None. TECHNIQUE: Dynamic and static grayscale images acquired of the abdomen and recorded on PACS. Additio nal selected color Doppler and spectral images recorded. LIMITATIONS: Markedly limited study due to the patient's obesity. FINDINGS: PANCREAS: Not visualized. LIVER: Limited visualization. Diffuse fatty infiltration. LIVER VASCULATURE: Normal directional flow of the main portal vein and hepatic veins. GALLBLADDER: No stones. Normal wall thickness. No pericholecystic fluid. ULTRASOUND-DETECTED JEAN BAPTISTE'S SIGN: Negative. INTRAHEPATIC DUCTS AND COMMON DUCT: Not visualized. INFERIOR VENA CAVA: Not visualized. AORTA: Not visualized. RIGHT KIDNEY: Multiple cortical cysts, the largest measuring 5 cm. PERITONEAL AND RIGHT PLEURAL SPACE: No ascites or effusions. OTHER: No other significant findings. IMPRESSION: MARKEDLY LIMITED STUDY. NO ASCITES VISUALIZED. MULTIPLE CYSTS IN THE RIGHT KIDNEY. TECHNICAL DOCUMENTATION: JOB ID: [id number] [employer]- All Rights Reserved
[2017-07-03] MEDS: DIAZEPAM 5 MG TABLET PO SCH ×3 (05:50→21:39)
[2017-07-03] MEDS: LANSOPRAZOLE 30 MG TAB.RAP.DR PO SCH (05:50)
[2017-07-03] MEDS: HEPARIN SOD (PORCINE) 5,000 UNIT/ML 1 ML SYRINGE SUBCUT SCH ×3 (05:50→21:39)
[2017-07-03 09:19] LABS: BLOOD UREA NITROGEN 23 mg/dL (7-20); CALCIUM 8.2 mg/dL (8.4-10.2); CARBON DIOXIDE 23 mmol/L (22-30); CHLORIDE 102 mmol/L (98-107); CREATININE RESULT 1.34 mg/dL (0.52-1.25); GLUCOSE 122 mg/dL (75-110); POTASSIUM 3.7 mmol/L (3.6-5.0)
[2017-07-03 09:21] LABS: ANION GAP 12 (5-19); SODIUM 136.5 mmol/L (137-145)
--- NOTE | 2017-07-03 09:24 | EKG REPORT ---
SEVERITY:- ABNORMAL ECG - SINUS RHYTHM BORDERLINE LEFT AXIS DEVIATION CONSIDER ANTEROSEPTAL INFARCT BORDERLINE T ABNORMALITIES, ANTERIOR LEADS : Confirmed by: Christel Leslie 03-Jul-2017 09:24:27
[2017-07-03] MEDS ORDERED: COLCHICINE 0.6 MG TABLET PO SCH (10:00)
[2017-07-03] MEDS: PREDNISONE 20 MG TABLET PO SCH ×2 (10:47→18:35)
[2017-07-03] MEDS: AMLODIPINE BESYLATE 10 MG TABLET PO SCH (10:48)
[2017-07-03] MEDS: FOLIC ACID 1 MG TABLET PO SCH (10:48)
[2017-07-03] MEDS: THIAMINE HCL 100 MG TABLET PO SCH (10:48)
[2017-07-03] MEDS: FUROSEMIDE INJ/PF 40 MG/4 ML SDV IV SCH ×2 (10:48→18:35)
--- NOTE | 2017-07-03 10:55 | PDOC PROGRESS REPORT ---
Subjective Progress Note for:: 07/03/17 Subjective:: Patient seen in bed. States he is unable to ambulate due to the pain in his left foot and leg. He has not gotten up out of bed without assistance. He was independent at home prior to coming into the hospital. This is reason why he was brought in. Patient states he has been on a drinking binge for the past month. Physical Exam Vital Signs: Temp Pulse Resp BP Pulse Ox 98.7 F 90 18 128/74 H 94 07/03/17 07:47 07/03/17 07:47 07/03/17 07:47 07/03/17 07:47 07/03/17 07:47 Intake & Output 07/02/17 07/03/17 07/04/17 06:59 06:59 06:59 Intake Total 2263 470 Output Total 2400 2450 Balance -137 -1980 Weight 127.2 kg 125.3 kg General appearance: PRESENT: no acute distress, well-developed, well-nourished Head exam: PRESENT: atraumatic, normocephalic Eye exam: PRESENT: conjunctiva pink, EOMI, PERRLA. ABSENT: scleral icterus Ear exam: PRESENT: normal external ear exam Mouth exam: PRESENT: moist, tongue midline Neck exam: ABSENT: carotid bruit, JVD, lymphadenopathy, thyromegaly Respiratory exam: PRESENT: clear to auscultation asim. ABSENT: rales, rhonchi, wheezes Cardiovascular exam: PRESENT: RRR. ABSENT: diastolic murmur, rubs, systolic murmur Pulses: PRESENT: normal dorsalis pedis pul Vascular exam: PRESENT: normal capillary refill GI/Abdominal exam: PRESENT: normal bowel sounds, soft. ABSENT: distended, guarding, mass, organolmegaly, rebound, tenderness Rectal exam: PRESENT: deferred Extremities exam: PRESENT: full ROM. ABSENT: calf tenderness, clubbing, pedal edema Musculoskeletal exam: PRESENT: normal inspection, tenderness - left lower ext. ABSENT: ambulatory, full ROM Neurological exam: PRESENT: alert, awake, oriented to person, oriented to place , oriented to time, oriented to situation, CN II-XII grossly intact. ABSENT: motor sensory deficit Psychiatric exam: PRESENT: appropriate affect, normal mood. ABSENT: homicidal ideation, suicidal ideation Skin exam: PRESENT: dry, intact, warm. ABSENT: cyanosis, rash Results Laboratory Results: 07/01/17 11:50 07/03/17 08:53 07/03/17 08:53 Sodium 136.5 L Potassium 3.7 Chloride 102 Carbon Dioxide 23 Anion Gap 12 BUN 23 H Creatinine 1.34 H Est GFR ( Amer) > 60 Est GFR (Non-Af Amer) 54 L Glucose 122 H Calcium 8.2 L 07/01/17 10:07 Troponin I < 0.012 Impressions: Chest/Abdomen CTA 07/01/17 00:00 IMPRESSION: 1. No PE. 2. Cardiomegaly. Diffuse ground-glass attenuation likely representing a component of pulmonary edema. No effusions. Tibia/Fibula X-Ray 07/01/17 00:33 IMPRESSION: 1. No acute fracture or dislocation. Abdomen Ultrasound 07/02/17 00:00 IMPRESSION: MARKEDLY LIMITED STUDY. NO ASCITES VISUALIZED. MULTIPLE CYSTS IN THE RIGHT KIDNEY. Assessment & Plan - Diagnosis (1) Gout attack Qualifiers: Gout site: foot Gout etiology: unspecified cause Laterality: left Qualified Code(s): M10.9 - Gout, unspecified Is this a current diagnosis for this admission?: Yes Plan: Patient is responding well to colchichine but i will increase his dose to bod and start Indomethacin. PT consult will ask d/c production planner to set up home health. Encouraged him to get oob to chair at least tid and ambulate in [place] with walker. (2) Leg pain Qualifiers: Laterality: left Qualified Code(s): M79.605 - Pain in left leg Is this a current diagnosis for this admission?: Yes Plan: Suspect patient's leg pain is secondary to gouty arthritis from recent drinking binge. Patient has indomethacin and tramadol as needed and we will treat the gout (3) Alcohol abuse Is this a current diagnosis for this admission?: Yes Plan: Alcohol cessation has been recommended the patient and encouraged him to go to outpatient rehab for education and counseling - Plan Summary Plan Summary: I will ask PT to reevaluate patient for possible home health needs and patient will need to get a walker prior to going home for ambulating and safety.
[2017-07-03] MEDS: [UNRECOGNIZED DRUG - REMARK] PO SCH ×3 (11:47→18:58)
[2017-07-03] MEDS ORDERED: COLCHICINE 0.6 MG TABLET PO ONE (12:00)
[2017-07-03] MEDS: INDOMETHACIN 50 MG CAPSULE PO SCH ×2 (16:05→21:39)
[2017-07-03] MEDS: COLCHICINE 0.6 MG TABLET PO SCH (21:39)
[2017-07-04] MEDS: INDOMETHACIN 50 MG CAPSULE PO SCH ×3 (05:44→21:55)
[2017-07-04] MEDS: HEPARIN SOD (PORCINE) 5,000 UNIT/ML 1 ML SYRINGE SUBCUT SCH ×3 (05:44→21:55)
[2017-07-04] MEDS: DIAZEPAM 5 MG TABLET PO SCH ×3 (05:44→21:55)
[2017-07-04] MEDS: LANSOPRAZOLE 30 MG TAB.RAP.DR PO SCH (05:45)
[2017-07-04] MEDS: AMLODIPINE BESYLATE 10 MG TABLET PO SCH (10:13)
[2017-07-04] MEDS: [UNRECOGNIZED DRUG - REMARK] PO SCH ×3 (10:13→18:27)
[2017-07-04] MEDS: FOLIC ACID 1 MG TABLET PO SCH (10:13)
[2017-07-04] MEDS: COLCHICINE 0.6 MG TABLET PO SCH ×2 (10:13→21:55)
[2017-07-04] MEDS: THIAMINE HCL 100 MG TABLET PO SCH (10:13)
--- NOTE | 2017-07-04 10:29 | PDOC PROGRESS REPORT ---
Subjective Progress Note for:: 07/04/17 Subjective:: Patient seen in bed. States he is unable to ambulate due to the pain in his left foot and leg. He has not gotten up out of bed without assistance. He was independent at home prior to coming into the hospital. This is reason why he was brought in. Patient states he has been on a drinking binge for the past month. Physical Exam Vital Signs: Temp Pulse Resp BP Pulse Ox 98.7 F 88 16 128/74 H 94 07/04/17 08:16 07/04/17 08:16 07/04/17 08:16 07/04/17 08:16 07/04/17 08:16 Intake & Output 07/03/17 07/04/17 07/05/17 06:59 06:59 06:59 Intake Total 470 2005 Output Total 0590 4980 Balance -1979 -174 Weight 125.3 kg 118.1 kg General appearance: PRESENT: no acute distress, well-developed, well-nourished Head exam: PRESENT: atraumatic, normocephalic Eye exam: PRESENT: conjunctiva pink, EOMI, PERRLA. ABSENT: scleral icterus Ear exam: PRESENT: normal external ear exam Mouth exam: PRESENT: moist, tongue midline Neck exam: ABSENT: carotid bruit, JVD, lymphadenopathy, thyromegaly Respiratory exam: PRESENT: clear to auscultation asim. ABSENT: rales, rhonchi, wheezes Cardiovascular exam: PRESENT: RRR. ABSENT: diastolic murmur, rubs, systolic murmur Pulses: PRESENT: normal dorsalis pedis pul Vascular exam: PRESENT: normal capillary refill GI/Abdominal exam: PRESENT: normal bowel sounds, soft. ABSENT: distended, guarding, mass, organolmegaly, rebound, tenderness Rectal exam: PRESENT: deferred Extremities exam: PRESENT: joint swelling, tenderness - left foot slowly improving. ABSENT: calf tenderness, clubbing, full ROM, pedal edema Musculoskeletal exam: ABSENT: ambulatory Neurological exam: PRESENT: alert, awake, oriented to person, oriented to place , oriented to time, oriented to situation, CN II-XII grossly intact. ABSENT: motor sensory deficit Psychiatric exam: PRESENT: appropriate affect, normal mood. ABSENT: homicidal ideation, suicidal ideation Skin exam: PRESENT: dry, intact, warm. ABSENT: cyanosis, rash Results Laboratory Results: 07/01/17 11:50 07/01/17 13:40 Clean Catch Midstream Urine Culture - Final Urogenital [place] 07/01/17 10:07 Troponin I < 0.012 Impressions: Chest/Abdomen CTA 07/01/17 00:00 IMPRESSION: 1. No PE. 2. Cardiomegaly. Diffuse ground-glass attenuation likely representing a component of pulmonary edema. No effusions. Tibia/Fibula X-Ray 07/01/17 00:33 IMPRESSION: 1. No acute fracture or dislocation. Abdomen Ultrasound 07/02/17 00:00 IMPRESSION: MARKEDLY LIMITED STUDY. NO ASCITES VISUALIZED. MULTIPLE CYSTS IN THE RIGHT KIDNEY. Assessment & Plan - Diagnosis (1) Gout attack Qualifiers: Gout site: foot Gout etiology: unspecified cause Laterality: left Qualified Code(s): M10.9 - Gout, unspecified Is this a current diagnosis for this admission?: Yes Plan: Patient is responding well to colchichine but i will increase his dose to bod and start Indomethacin. PT consult will ask d/c mission planner to set up home health. Encouraged him to get oob to chair at least tid and ambulate in [place] with walker. (2) Leg pain Qualifiers: Laterality: left Qualified Code(s): M79.605 - Pain in left leg Is this a current diagnosis for this admission?: Yes Plan: Suspect patient's leg pain is secondary to gouty arthritis from recent drinking binge. Patient has indomethacin and tramadol as needed and we will treat the gout (3) Alcohol abuse Is this a current diagnosis for this admission?: Yes Plan: Alcohol cessation has been recommended the patient and encouraged him to go to outpatient rehab for education and counseling. Was hoping patient will be able to go home today he is moving around a little better than he was yesterday. Staff nurse states he did not not get up until late yesterday afternoon. Today I have asked him to get up have all his meals in the chair again. Waiting for him to get a walker from PT prior to going home.
[2017-07-04 10:35] LABS: ANION GAP 17 (5-19); BLOOD UREA NITROGEN 31 mg/dL (7-20); CALCIUM 8.4 mg/dL (8.4-10.2); CARBON DIOXIDE 19 mmol/L (22-30); CHLORIDE 100 mmol/L (98-107); CREATININE RESULT 1.27 mg/dL (0.52-1.25); GLUCOSE 157 mg/dL (75-110)
[2017-07-04] MEDS: SENNOSIDES/DOCUSATE 8.6-50 MG 1 EACH TABLET PO SCH (18:25)
[2017-07-05] MEDS: LANSOPRAZOLE 30 MG TAB.RAP.DR PO SCH (06:32)
[2017-07-05] MEDS: DIAZEPAM 5 MG TABLET PO SCH (06:32)
[2017-07-05] MEDS: HEPARIN SOD (PORCINE) 5,000 UNIT/ML 1 ML SYRINGE SUBCUT SCH (06:32)
[2017-07-05] MEDS: INDOMETHACIN 50 MG CAPSULE PO SCH (06:32)
[2017-07-05] MEDS: COLCHICINE 0.6 MG TABLET PO SCH (10:15)
[2017-07-05] MEDS: THIAMINE HCL 100 MG TABLET PO SCH (10:15)
[2017-07-05] MEDS: AMLODIPINE BESYLATE 10 MG TABLET PO SCH (10:15)
[2017-07-05] MEDS: FOLIC ACID 1 MG TABLET PO SCH (10:15)
[2017-07-05] MEDS: SENNOSIDES/DOCUSATE 8.6-50 MG 1 EACH TABLET PO SCH (10:18)
[2017-07-05] MEDS: [UNRECOGNIZED DRUG - REMARK] PO SCH (10:18)
--- NOTE | 2017-07-05 10:42 | PDOC DISCHARGE SUMMARY ---
General - Admit/Disc Date/PCP Admission Date/Primary Care Provider: 07/01/17 09:47 Discharge Date: 07/05/17 - Discharge Diagnosis (1) Gout attack Is this a current diagnosis for this admission?: Yes Summary: Patient was given prescriptions for allopurinol and colchichine. He is to continue his indomethacin as needed pain and discomfort encourage patient to sustain from drinking alcohol which can precipitate gout attacks (2) Leg pain Is this a current diagnosis for this admission?: Yes Summary: Suspect leg pain secondary to gout attack continue gout medication follow-up primary care outpatient for further refills (3) Alcohol abuse Is this a current diagnosis for this admission?: Yes Summary: Encourage alcohol cessation and outpatient rehab for therapy, support, counseling and education - Additional Information Resuscitation Status: Full Code Discharge Diet: As Tolerated Discharge Activity: Activity As Tolerated Home Medications: Allopurinol [Zyloprim 100 mg Tablet] 100 mg PO DAILY 07/01/17 Amlodipine Besylate [Norvasc 10 mg Tablet] 10 mg PO DAILY 07/01/17 Hydroxyzine HCl [Atarax 25 mg Tablet] 25 mg PO DAILYP PRN 07/01/17 Indomethacin [Indocin 25 mg Capsule] 25 mg PO [id number] 07/01/17 Levothyroxine Sodium [Synthroid 0.05 mg Tablet] 0.05 mg PO DAILY 07/01/17 Omeprazole 20 mg PO DAILY 07/01/17 Valsartan [Diovan 160 mg Tablet] 160 mg PO DAILY 07/01/17 Amlodipine Besylate [Norvasc 10 mg Tablet] 10 mg PO DAILY #30 tablet 07/05/17 Colchicine [Colcrys 0.6 mg Tablet] 0.6 mg PO Q12 #60 tablet 07/05/17 Indomethacin [Indocin 50 mg Capsule] 50 mg PO Q8 capsule 07/05/17 Sennosides/Docusate 8.6-50 mg [Senna Plus Tablet] 1 each PO BID #30 tablet 07/05 History of Present Illness History of Present Illness: HOLA PRICE is a 61 year old [id number] male came in with new onset left lower extremity pain unable to bear any weight while he also had good bit of diarrhea. He was found to have electrolyte disturbance with lower extremity pain he had hypertension, hypothyroidism, reflux, gouty arthritis, alcohol dependency and abuse, and medical non-compliance. Hospital Course Hospital Course: Patient was treated with IV potassium, magnesium he had replacement of his electrolytes with frequent monitoring. He responded well to therapy. He did have a increased debility in ambulating and increased amount of pain but seemed to resolve better after restarting his gout medications. Physical therapy consult was initiated with regards of assisting patient walking with the walker I have ordered him a walker for home he is follow-up with his primary care physician in 1-2 weeks as needed for any further outpatient assistance. Patient had some mild to moderate diastolic dysfunction via echocardiogram patient had some mildly elevated LFTs and some ascites. He had a abdominal ultrasound that showed multiple cortical cyst in his right kidney, diffuse fatty infiltrate liver otherwise benign ultrasound. Physical Exam Vital Signs: Temp Pulse Resp BP Pulse Ox 98.9 F 98 18 132/79 H 95 07/05/17 08:01 07/05/17 08:01 07/05/17 08:01 07/05/17 08:01 07/05/17 08:01 Intake & Output 07/04/17 07/05/17 07/06/17 06:59 06:59 06:59 Intake Total 2005 615 Output Total 3750 1775 Balance -1744 -1160 Weight 118.1 kg 121.7 kg General appearance: PRESENT: no acute distress, obese, well-developed, well- nourished Head exam: PRESENT: atraumatic, normocephalic Eye exam: PRESENT: conjunctiva pink, EOMI, PERRLA. ABSENT: scleral icterus Ear exam: PRESENT: normal external ear exam Mouth exam: PRESENT: moist, tongue midline Neck exam: ABSENT: carotid bruit, JVD, lymphadenopathy, thyromegaly Respiratory exam: PRESENT: clear to auscultation asim. ABSENT: rales, rhonchi, wheezes Cardiovascular exam: PRESENT: RRR. ABSENT: diastolic murmur, rubs, systolic murmur Pulses: PRESENT: normal dorsalis pedis pul Vascular exam: PRESENT: normal capillary refill GI/Abdominal exam: PRESENT: normal bowel sounds, soft. ABSENT: distended, guarding, mass, organolmegaly, rebound, tenderness Rectal exam: PRESENT: deferred Extremities exam: PRESENT: full ROM - Decreased range of motion to the left lower extremity but slowly improving, pedal edema, tenderness. ABSENT: calf tenderness, clubbing Neurological exam: PRESENT: alert, awake, oriented to person, oriented to place , oriented to time, oriented to situation, CN II-XII grossly intact. ABSENT: motor sensory deficit Psychiatric exam: PRESENT: appropriate affect, normal mood. ABSENT: homicidal ideation, suicidal ideation Skin exam: PRESENT: dry, intact, warm. ABSENT: cyanosis, rash Results Laboratory Results: 07/01/17 11:50 07/04/17 10:09 07/04/17 10:09 Sodium 136.0 L Potassium 4.0 Chloride 100 Carbon Dioxide 19 L Anion Gap 17 BUN 31 H Creatinine 1.27 H Est GFR ( Amer) > 60 Est GFR (Non-Af Amer) 57 L Glucose 157 H Calcium 8.4 07/01/17 10:07 Troponin I < 0.012 Impressions: Chest/Abdomen CTA 07/01/17 00:00 IMPRESSION: 1. No PE. 2. Cardiomegaly. Diffuse ground-glass attenuation likely representing a component of pulmonary edema. No effusions. Tibia/Fibula X-Ray 07/01/17 00:33 IMPRESSION: 1. No acute fracture or dislocation. Abdomen Ultrasound 07/02/17 00:00 IMPRESSION: MARKEDLY LIMITED STUDY. NO ASCITES VISUALIZED. MULTIPLE CYSTS IN THE RIGHT KIDNEY. Plan Discharge Plan: Follow-up primary care physician in 1-2 weeks or as needed. Recommend recheck in the [facility] and 2-3 weeks. Patient was encouraged to take a purine free diet
[2017-07-05 12:49] VITALS: BP 135/71
== END 2017-07-05 12:58 | disposition home or self-care (01) | DRG 554 ==
LOC: ER 23:31 → EH 07-01 02:10 → 4W 07-01 03:05 → OBSVTOIN 07-01 09:47 → 3S 07-01 13:19
PROVIDERS: ADMIT Family Medicine; ATTEND Family Medicine
DX: M10.9 Gout, unspecified (principal); Q61.02 Congenital multiple renal cysts; I10 Essential (primary) hypertension; E03.9 Hypothyroidism, unspecified; F10.20 Alcohol dependence, uncomplicated; K76.0 Fatty (change of) liver, not elsewhere classified; K21.9 Gastro-esophageal reflux disease without esophagitis; R79.1 Abnormal coagulation profile; E87.6 Hypokalemia; E83.42 Hypomagnesemia; Z91.14 Patient's other noncompliance with medication regimen; Z79.899 Other long term (current) drug therapy; Z87.891 Personal history of nicotine dependence; Z82.49 Family history of ischemic heart disease and other diseases of the circulatory system; Z83.3 Family history of diabetes mellitus
CPT/HCPCS: 36415; 71275; 76705; 80048; 80076; 81001; 82140; 82550; 82962; 83690; 83735; 84439; 84443; 84484; 84550; 85025; 85027; 85379; 87040; 87086; 93005; 93010; 93306; 93971; 96365; 96375; 99285; G0378; J1644; J1940; J2270; J2405; J3475; J3480; J3490; J7512

== ENCOUNTER 2019-03-14 15:32 | Emergency (ER) | payer OTHER ==
[2019-03-14 15:37] VITALS: BP 161/81
[2019-03-14] MEDS ORDERED: METOCLOPRAMIDE HCL ORAL SOLN 10 MG/10 ML UDCUP PO ONE (16:32)
[2019-03-14] MEDS ORDERED: MAG HYDROX/AL HYDROX/SIMETH SUSP 30 ML UDCUP PO ONE (16:32)
[2019-03-14] MEDS ORDERED: LIDOCAINE 2% VISCOUS SOLN 20 ML UDCUP PO ONE (16:32)
--- NOTE | 2019-03-14 16:33 | ER Document Report ---
HPI - HPI Time Seen by Provider: 03/14/19 16:28 Pain Level: 0 Notes: Patient is a 63-year-old male with a history of hypertension and GERD who presents complaining of feeling a pill stuck in his lower esophagus after he swallowed an antacid capsule yesterday. Patient states that he immediately felt like it filled and not go all the way down. Patient states that since then he has been able to eat and drink without any difficulties. The sensation remains. He is urinating normally and having normal bowel movements. Patient states that he is able to ambulate without any worsening symptoms. He denies any chest symptoms. Denies drug allergies. Patient states that aside from that feeling of something still there in his esophagus he feels well. Denies any headache, fever, URI, sore throat, chest pain, palpitations, syncope, cough, shortness of breath, wheeze, dyspnea, abdominal pain, nausea/vomiting/diarrhea, urinary retention, dysuria, hematuria, or rash. - ROS Systems Reviewed and Negative: Yes All other systems reviewed and negative - REPRODUCTIVE Reproductive: DENIES: : Past Medical History - Social History Smoking Status: Never Smoker Family History: CAD, DM - Past Medical History Cardiac Medical History: Reports: Hx Hypertension Endocrine Medical History: Reports: Hx Hypothyroidism Renal/ Medical History: Denies: Hx Peritoneal Dialysis GI Medical History: Reports: Hx Gastroesophageal Reflux Disease Musculoskeletal Medical History: Reports Hx Arthritis - Immunizations Hx Diphtheria, Pertussis, Tetanus Vaccination: Yes Vertical Provider Document - CONSTITUTIONAL Agree With Documented VS: Yes Notes: PHYSICAL EXAMINATION: GENERAL: Well-appearing, well-nourished and in no acute distress. HEAD: Atraumatic, normocephalic. EYES: Pupils equal round and reactive to light, extraocular movements intact, sclera anicteric, conjunctiva are normal. ENT: Nares patent and without discharge. oropharynx clear without exudates. No tonsilar hypertrophy or erythema. Moist mucous membranes. NECK: Normal range of motion, supple without lymphadenopathy LUNGS: Breath sounds clear to auscultation bilaterally and equal. No wheezes rales or rhonchi. HEART: Regular rate and rhythm without murmurs, rubs, gallops. ABDOMEN: Soft, nontender, nondistended abdomen. No guarding, no rebound. Normal bowel sounds present. No CVA tenderness bilaterally. Musculoskeletal: FROM to passive/active. Strength 5+/5. Extremities: No cyanosis, clubbing, or edema b/l. Peripheral pulses 2+. Capillary refill less than 3 seconds. NEUROLOGICAL: Normal speech, normal gait. PSYCH: Normal mood, normal affect. SKIN: Warm, Dry, normal turgor, no rashes or lesions noted. - INFECTION CONTROL TRAVEL OUTSIDE OF THE [place] IN LAST 30 DAYS: No Course - Re-evaluation Re-evalutation: 03/14/19 Patient is an afebrile, well-hydrated, 63-year-old male who presents with pill esophagitis. Vitals are acceptable without significant tachycardia, tachypnea, or hypoxia. PE is otherwise unremarkable. Patient is nontoxic-appearing. Patient's abdomen is soft and nontender. Lungs are clear to auscultation bilaterally. Patient symptoms began immediately after swallowing his antacid capsule and have not fluctuated significantly worsened. Patient has not had any chest pain, dyspnea on exertion, or shortness of breath. He is able to ambulate without any worsening symptoms. Patient has proven to be able to tolerate p.o. and has been eating and drinking without difficulty. GI cocktail was provided which immediately resolved his symptoms. I did review that this is only temporary. Low suspicion/risk for acute appendicitis, bowel obstruction, acute cholecystitis, perforated diverticulitis, incarcerated hernia, pancreatitis, perforated ulcer, peritonitis, sepsis, testicular torsion, ACS, PE, pneumothorax, pericarditis, dissection, or other systemic emergent condition at this time. Patient is aware that his condition can change from initial presentation and he needs to monitor symptoms closely and seek medical attention if any acute changes. Conservative measures otherwise for symptoms. Recheck with PCM in 2-3 days. Consider consult with a paediatric surgeon. Return to the ED with any worsening/concerning symptoms otherwise as reviewed in discharge. Patient is in agreement. - Vital Signs Vital signs: Temp Pulse Resp BP Pulse Ox 98.0 F 97 16 161/81 H 98 03/14/19 15:36 03/14/19 15:36 03/14/19 15:36 03/14/19 15:36 03/14/19 15:36 Discharge - Discharge Clinical Impression: Pill esophagitis Condition: Stable Disposition: HOME, SELF-CARE Additional Instructions: Maintain adequate fluid and food intake Healthy diet tylenol if needed Monitor for any worsening symptoms Make sure you are staying hydrated enough to urinate and have normal BM's Recheck with your PCM in 2-3 days Consider consult with Gastroenterology for ongoing/worsening symptoms Return to the ED with any worsening symptoms and/or development of fever, headache, chest pain, palpitations, syncope, shortness of breath, trouble breathing, abdominal pain, n/v/d, blood in stool/urine, weakness, or other worsening symptoms that are concerning to you. Prescriptions: Sucralfate [Carafate] 1 gm PO BID #100 ml Forms: Elevated Blood Pressure Referrals: PETE SARAVIA MD [ACTIVE STAFF] - Follow up as needed
== END 2019-03-14 17:03 | disposition home or self-care (01) ==
LOC: ER 15:32
DX: K20.9 Esophagitis, unspecified (principal); K21.9 Gastro-esophageal reflux disease without esophagitis; I10 Essential (primary) hypertension
CPT/HCPCS: 99283; J3490

== ENCOUNTER 2019-06-21 08:59 | Day surgery (SDC) | payer OTHER ==
[~2019-06-21 08:59] MED LIST: BUPIVACAINE HCL 0.75% INJ/PF (7.5 MG/1 ML) 10 ML SDV OS PRN; DORZOLAMIDE HCL 2%/TIMOLOL MALEAT 0.5% OPH SOLN 10 ML OS PRN; KETOROLAC TROMETHAMINE 0.45% 4 DROP/0.4 ML DROPERETTE OS PRN; LIDOCAINE 4% INJ/PF (40 MG/ML) 5 ML AMPUL OS PRN
[2019-06-21] MEDS ORDERED: MIDAZOLAM 2 MG/2 ML INJ ONE (09:15)
[2019-06-21] MEDS: CYCLOPENTOLATE 0.2%/PHENYLEPHRINE 1% OPH SOLN 2 ML OS PRN ×3 (09:55→10:20)
[2019-06-21] MEDS: BESIFLOXACIN HCL 0.6% OPH SUSP 5 ML BOTTLE OS PRN ×3 (09:55→10:56)
[2019-06-21] MEDS: TROPICAMIDE 1% OPH SOLN 15 ML OS PRN ×3 (09:55→10:20)
[2019-06-21] MEDS: TETRACAINE HCL 0.5% OPH SOLN 4 ML OS PRN ×4 (09:55→10:26)
[2019-06-21] MEDS ORDERED: LIDOCAINE 1% INJ-PF (10 MG/ML) 30 ML SDV ONE (10:27)
[2019-06-21] MEDS: CHONDR SU A NA/HYALUR INTRAOC KIT (SURGICARE) ONE ×2 (10:40)
[2019-06-21] MEDS: EPINEPHRINE INJ/PF 1 MG/1 ML AMPULE ONE ×2 (10:40)
--- NOTE | 2019-06-21 11:22 | Operative Report ---
Operative Report-[facility] Operative Report: DATE OF SURGERY: 06/21/2019 PREOPERATIVE DIAGNOSIS: CATARACT, LEFT EYE. POSTOPERATIVE DIAGNOSIS: CATARACT, LEFT EYE. PROCEDURE PERFORMED: PHACOEMULSIFICATION WITH POSTERIOR CHAMBER INTRAOCULAR LENS, LEFT EYE. Intraocular Lens Model : MX60E 18.5 Total Phaco Time: 10.5 to CDE SURGEON: VICKY ROUSE MD ANESTHESIA: TOPICAL WITH MAC. INDICATIONS FOR SURGERY: Difficultly reading PROCEDURE: The patient was brought to the Operating Room and placed on the operative table. Following tetracaine drops, topical anesthesia was administered. This consisted of instrument wipe pledgets soaked in a solution of 4% Xylocaine mixed with 0.75% Marcaine in a 1:2 ratio. A 2 x 1 cm pledget was placed in the superior fornix. A 1 x 1 cm pledget was placed in the inferior fornix. The eye was patched shut for 5 minutes. The patch was removed. The eye was sterilely prepped and draped in the usual manner. Lid speculum was placed in the eye. The pledgets were removed. 4-0 black silk sutures were placed around the superior and the inferior rectus muscles to be used as traction. A conjunctival peritomy was made at the 10 o'clock position. Hemostasis was obtained with bipolar cautery. A posterior limbal groove was created using a crescent knife and dissected anteriorly towards the cornea. A sharp point blade was used to create a paracentesis site at the 2 o'clock position. 0.2 cc non preserved Lidocaine was injected into the anterior chamber. A 2.4 mm keratome was used to enter the anterior chamber through the groove. Viscoelastic was injected into the anterior chamber. An anterior capsulotomy was performed using Utrata forceps in a capsulorrhexis fashion. Hydrodissection and hydrodelineation were performed. Phacoemulsification was performed in [id number] technique. Following this, the I/A unit was used to remove residual cortex. Viscoelastic was injected into the capsular bag. The Intraocular lens was placed in the capsular bag. The I/A unit was used to remove residual viscoelastic. The wound was seen to be watertight under high and low pressure, and no sutures were placed. The intraocular lens was well centered. The pressure was adjusted in the eye to normal pressure. The 4-0 black silk sutures and lid speculum were removed. The eye was shielded after Besivance and Cosopt drops were placed. The patient tolerated the procedure well and was sent to the Recovery Room in good condition.
== END 2019-06-21 11:28 | disposition home or self-care (01) ==
LOC: SC 08:59
PROVIDERS: ATTEND Ophthalmology
DX: H25.812 Combined forms of age-related cataract, left eye (principal); Z96.1 Presence of intraocular lens; I10 Essential (primary) hypertension; J44.9 Chronic obstructive pulmonary disease, unspecified; Z86.73 Personal history of transient ischemic attack (TIA), and cerebral infarction without residual deficits; K21.9 Gastro-esophageal reflux disease without esophagitis; E07.9 Disorder of thyroid, unspecified; M10.9 Gout, unspecified
CPT/HCPCS: 66984; J2250; J3490 ×5; J0171; V2632

== ENCOUNTER 2020-06-13 18:45 | Emergency (ER) | payer MEDICARE, OTHER ==
--- NOTE | 2020-06-13 19:06 | ER Document Report ---
ED Medical Screen (RME) - General Stated Complaint: URNIATION PROBLEMS Time Seen by Provider: 06/13/20 18:57 Primary Care Provider: JENNIFER RICHTER MD [Primary Care Provider] - Follow up as needed TRAVEL OUTSIDE OF THE [place] IN LAST 30 DAYS: No - HPI Notes: 06/13/20 19:05 64-year-old male to the emergency department with complaints of left flank pain and some difficulty making his urine in the past 24 hours. He states he started with a flank pain earlier in the week and his doctor prescribed him Flagyl. He states he just recently got on the hospital in [place] where he had an EGD scope and had a little bit of acute kidney dysfunction. He states that he has been doing well until his flank started to hurt him. He states now he is not able to make a "complete stream. He states that he is "dribbling and hesitating. He states that he has had a catheter in the past but he denies any history of prostatic hypertrophy. Denies any hematuria or history of kidney stone. Denies any nausea, vomiting, fevers, chills. I performed a brief medical screening exam on the patient determined that the patient needs further evaluation and management by main side provider. I have placed initial orders to help expedite care. - Related Data Allergies/Adverse Reactions: No Known Allergies Allergy (Verified 06/13/20 19:04) Past Medical History - Past Medical History Cardiac Medical History: Reports: Hx Hypertension Denies: Hx Heart Attack Pulmonary Medical History: Denies: Hx Asthma Neurological Medical History: Denies: Hx Cerebrovascular Accident, Hx Seizures Endocrine Medical History: Reports: Hx Hypothyroidism Renal/ Medical History: Denies: Hx Peritoneal Dialysis GI Medical History: Reports: Hx Gastroesophageal Reflux Disease, Hx Hepatitis - NOT SURE WHICH TYPE. Denies: Hx Hiatal Hernia, Hx Ulcer Musculoskeltal Medical History: Reports Hx Arthritis Infectious Medical History: Reports: Hx Hepatitis - NOT SURE WHICH TYPE Past Surgical History: Denies: Hx Open Heart Surgery, Hx Pacemaker - Immunizations Hx Diphtheria, Pertussis, Tetanus Vaccination: Yes Physical Exam - Vital signs Vitals: Temp Pulse Resp BP Pulse Ox 98.0 F 107 H 16 132/70 H 97 06/13/20 18:51 06/13/20 18:51 06/13/20 18:51 06/13/20 18:51 06/13/20 18:51 Course - Vital Signs Vital signs: Temp Pulse Resp BP Pulse Ox 98.0 F 107 H 16 132/70 H 97 06/13/20 18:51 06/13/20 18:51 06/13/20 18:51 06/13/20 18:51 06/13/20 18:51 Doctor's Discharge - Discharge Referrals: JENNIFER RICHTER MD [Primary Care Provider] - Follow up as needed
[2020-06-13 19:27] LABS: ABSOLUTE BASOPHILS # (AUTO) 0.1 10^3/uL (0.0-0.2); ABSOLUTE EOSINOPHILS # (AUTO) 0.2 10^3/uL (0.0-0.6); ABSOLUTE MONOCYTES (AUTO) 0.9 10^3/uL (0.1-1.4); ABSOLUTE NEUT (AUTO) 6.3 10^3/uL (1.7-8.2); EOSINOPHILS % (AUTO) 2.2 % (0-6); HEMATOCRIT 37.5 % (37.9-51.0); HEMOGLOBIN 12.6 g/dL (13.5-17.0); LYMPHOCYTES % (AUTO) 11.7 % (13-45); MEAN CORPUSCULAR HGB CONC 33.5 g/dL (32.0-36.0); MONOCYTES % (AUTO) 10.6 % (3-13); PLATELET COUNT 177 10^3/uL (150-450); RED BLOOD COUNT 3.93 10^6/uL (4.35-5.55); RED CELL DISTRIBUTION WIDTH 16.5 % (11.5-14.0); SEGMENTED NEUTROPHILS % (AUTO) 74.5 % (42-78); TOTAL CELLS COUNTED % (AUTO) 100 %; WHITE BLOOD COUNT 8.5 10^3/uL (4.0-10.5)
[2020-06-13 19:28] LABS: MEAN CORPUSCULAR VOLUME 96 fl (80-97)
[2020-06-13 19:40] LABS: ALBUMIN 3.7 g/dL (3.5-5.0); ALKALINE PHOSPHATASE 117 U/L (38-126); ANION GAP 13 (5-19); ASPARTATE AMINO TRANSFERASE 28 U/L (17-59); BILIRUBIN,DIRECT 0.8 mg/dL (0.0-0.4); BILIRUBIN,TOTAL 1.3 mg/dL (0.2-1.3); BLOOD UREA NITROGEN 31 mg/dL (7-20); CALCIUM 9.1 mg/dL (8.4-10.2); CARBON DIOXIDE 14 mmol/L (22-30); CHLORIDE 103 mmol/L (98-107); GLUCOSE 90 mg/dL (75-110); POTASSIUM 4.3 mmol/L (3.6-5.0); TOTAL PROTEIN 7.7 g/dL (6.3-8.2)
[2020-06-13 22:17] LABS: INTERNATIONAL RATION (INR) 1.35; PROTHROMBIN TIME 16.9 SEC (11.4-15.4)
[2020-06-13 22:30] LABS: APPEARANCE,URINE SLIGHTLY-CLOUDY; BILIRUBIN,URINE NEGATIVE (NEGATIVE); COLOR,URINE AMBER; GLUCOSE, URINE NEGATIVE (NEGATIVE); KETONES,URINE NEGATIVE (NEGATIVE); LEUKOCYTE ESTERASE,URINE MODERATE (NEGATIVE); NITRITE,URINE NEGATIVE (NEGATIVE); PROTEIN,URINE NEGATIVE (NEGATIVE); URINE SPECIFIC GRAVITY 1.016; UROBILINOGEN,URINE NEGATIVE mg/dL (<2.0)
[2020-06-13] MEDS ORDERED: NORMAL SALINE 1000 ML 1,000 ML IV ONE (23:47)
--- NOTE | 2020-06-14 00:52 | ER Document Report ---
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 Patient says diarrhea has been any better or worse since discharge, saw PCP and started Flagyl yesterday but no C. difficile test was performed before this. Patient stopped using alcohol since hospitalization. Patient denies any dysuria, urgency, flank pain, nausea/vomiting, fever, abdominal pain, chest pain, shortness of breath, cough, dizziness, syncope, BPH TRAVEL OUTSIDE OF THE [place] IN LAST 30 DAYS: No - Related Data Allergies/Adverse Reactions: No Known Allergies Allergy (Verified 06/13/20 19:04) Past Medical History - General Information source: Patient - Social History Smoking Status: Never Smoker Chew tobacco use (# tins/day): No Frequency of alcohol use: Occasional Drug Abuse: None Family History: CAD, DM - Past Medical History Cardiac Medical History: Reports: Hx Hypertension Denies: Hx Heart Attack Pulmonary Medical History: Denies: Hx Asthma Neurological Medical History: Denies: Hx Cerebrovascular Accident, Hx Seizures Endocrine Medical History: Reports: Hx Hypothyroidism Renal/ Medical History: Denies: Hx Peritoneal Dialysis GI Medical History: Reports: Hx Gastroesophageal Reflux Disease, Hx Hepatitis - NOT SURE WHICH TYPE. Denies: Hx Hiatal Hernia, Hx Ulcer Musculoskeletal Medical History: Reports Hx Arthritis Infectious Medical History: Reports: Hx Hepatitis - NOT SURE WHICH TYPE Past Surgical History: Denies: Hx Open Heart Surgery, Hx Pacemaker - Immunizations Hx Diphtheria, Pertussis, Tetanus Vaccination: Yes Review of Systems - Review of Systems Notes: REVIEW OF SYSTEMS: CONSTITUTIONAL : Denies fever, chills, or sweats. EENT: Denies recent cold/sinus symptoms, denies throat pain CARDIOVASCULAR: Denies chest pain, FREDERIC RESPIRATORY: Denies cough, denies shortness of breath. GASTROINTESTINAL: Denies abdominal pain, nausea/vomiting. GENITOURINARY: +difficulty urinating, -painful urination. MUSCULOSKELETAL: Denies neck pain, back pain. SKIN: Denies rash or skin lesions. HEMATOLOGIC : Denies easy bruising or bleeding. LYMPHATIC: Denies swollen, enlarged glands. NEUROLOGICAL: Denies headache, denies change in gait. PSYCHIATRIC: Denies anxiety or stress or depression. Physical Exam - Vital signs Vitals: Temp Pulse Resp BP Pulse Ox 98.0 F 107 H 16 132/70 H 97 06/13/20 18:51 06/13/20 18:51 06/13/20 18:51 06/13/20 18:51 06/13/20 18:51 - Notes Notes: PHYSICAL EXAMINATION: GENERAL: Middle-aged adult male lying in stretcher with no visible signs of discomfort HEAD: Atraumatic, normocephalic. EYES: Pupils equal round and appropriate constriction, sclera anicteric, conjunctiva are normal. ENT: nares patent, moist mucous membranes. NECK: Normal range of motion, supple without lymphadenopathy LUNGS: Breath sounds clear to auscultation bilaterally and equal. No wheezes rales or rhonchi. HEART: Tachycardic, regular rhythm, no murmurs rubs or gallops ABDOMEN: Soft, massively distended abdomen, no caput medusae, no masses, no tenderness, no guarding, no rebound. Low-volume brown stool on rectal exam. EXTREMITIES: Normal range of motion, no pitting or edema. No cyanosis. NEUROLOGICAL: Awake, alert, conversing appropriately, moves all extremities spontaneously. PSYCH: Normal mood, normal affect. SKIN: Warm, Dry Course - Re-evaluation Re-evalutation: 06/14/20 01:52 Patient with persistent diarrhea since being discharged from [facility] for varice al bleed. Now with decreased urine output, discussion with specialist provided creatinine was 2.45 few days ago with a BUN of 20, hemoglobin was 12. Stool guaiac positive, but hemoglobin stable. Possibly secondary to low volume GI bleed versus mild C. difficile colitis as patient has no abdominal pain, nontender abdomen, no systemic symptoms. Decreased urine output concerning for oliguric renal insufficiency, creatinine now up to 3 consistent with acute kidney injury. Patient mildly tachycardic with no PE symptoms, decreased urine output possibly secondary to dehydration with normal BUN secondary to hepatic dysfunction. Patient relatively stable, but unable to keep at [place] due to [place] of availability of GI if patient should decompensate and patient has recent history of major variceal bleed. Because of this, and initiated transfer. Patient accepted to [facility] by . Will continue to monitor pending transfer. 06/14/20 01:57 Prior to [facility] I called Marco Puckett, [facility], and [facility] who said that they had no medicine beds and no wait list. 06/14/20 02:27 Currently here to transfer patient to [facility], patient's exam remains stable, patient remains appropriate for transfer at this time. 06/14/20 02:28 - Vital Signs Vital signs: Temp Pulse Resp BP Pulse Ox 98.0 F 107 H 24 H 115/74 99 06/13/20 18:51 06/13/20 18:51 06/14/20 02:30 06/14/20 02:30 06/14/20 02:30 - Laboratory Result Diagrams: 06/13/20 19:12 06/13/20 19:12 Laboratory results interpreted by me: 06/13/20 06/13/20 06/13/20 19:12 19:12 19:12 RBC 3.93 L Hgb 12.6 L Hct 37.5 L RDW 16.5 H Lymph % (Auto) 11.7 L PT 16.9 H APTT 50.0 H Sodium 130.3 L Carbon Dioxide 14 L BUN 31 H Creatinine 3.05 H Est GFR ( Amer) 25 L Est GFR (MDRD) Non-Af 21 L Direct Bilirubin 0.8 H Ur Leukocyte Esterase 06/13/20 22:00 RBC Hgb Hct RDW Lymph % (Auto) PT APTT Sodium Carbon Dioxide BUN Creatinine Est GFR ( Amer) Est GFR (MDRD) Non-Af Direct Bilirubin Ur Leukocyte Esterase MODERATE H Discharge - Discharge Clinical Impression: CHERISE (acute kidney injury) Diarrhea Qualifiers: Diarrhea type: unspecified type Qualified Code(s): R19.7 - Diarrhea, unspecified Cirrhosis Qualifiers: Hepatic cirrhosis type: alcoholic cirrhosis Ascites presence: with ascites Qualified Code(s): K70.31 - Alcoholic cirrhosis of liver with ascites Disposition: [facility] [place] Referrals: JENNIFER RICHTER MD [Primary Care Provider] - Follow up as needed
[2020-06-14 02:36] VITALS: BP 115/74
== END 2020-06-14 03:00 | disposition short-term general hospital (02) ==
LOC: ER 18:45
DX: N17.9 Acute kidney failure, unspecified (principal); K70.31 Alcoholic cirrhosis of liver with ascites; R19.7 Diarrhea, unspecified; I10 Essential (primary) hypertension
CPT/HCPCS: 99285; 96360; 36415; 87086; 83690; 85025; 85610; 85730; 87088; 80053; 81001; 87186; J7030